=== PATIENT | male | born 1995 | race Caucasian/White ===

== ENCOUNTER 2019-09-03 19:42 | Emergency (ER) | payer BC ==
[~2019-09-03] VITALS: Ht 175.3 cm; Wt 79.5 kg
[2019-09-03 19:45] VITALS: BP 159/80; TEMP 99.3
[2019-09-03] MEDS ORDERED: DOXYCYCLINE 10100 MG PO (20:02)
[2019-09-03 20:16] VITALS: PULSE 92
== END 2019-09-03 20:16 | disposition home or self-care (01) ==
LOC: COL.ER 19:42
DX: L08.9 Local infection of the skin and subcutaneous tissue, unspecified (principal)